=== PATIENT | female | born 1955 | race Caucasian/White ===

== ENCOUNTER 2017-01-04 19:43 | Emergency (ER) | payer OTHER ==
[~2017-01-04] VITALS: Ht 190.5 cm; Wt 81.6 kg
[2017-01-04 19:43] VITALS: BP 120/98; PULSE 76; RESP 20; TEMP 98; O2SAT 98
[2017-01-04] MEDS ORDERED: SULFAMETHOXAZOLE/TRIMETHOPR DS 1 TABLET PO ONE (21:45)
[2017-01-04] MEDS ORDERED: DIPH-TET-PERTUS Vaccine 0.5 ML VIAL (ADACEL) I.M. ONE (21:45)
[2017-01-04] MEDS ORDERED: IBUPROFEN 800 MG TABLET PO ONE (21:45)
[2017-01-04] MEDS ORDERED: BACITRACIN 1 GM OINT TP ONE (22:16)
[2017-01-04 23:00] VITALS: BP 120/98; PULSE 76; RESP 20; TEMP 98; O2SAT 98
== END 2017-01-04 23:00 | disposition home or self-care (01) ==
LOC: SED 19:43
DX: L03.116 Cellulitis of left lower limb (principal); L03.115 Cellulitis of right lower limb; R03.0 Elevated blood-pressure reading, without diagnosis of hypertension
CPT/HCPCS: 90715; 99283